=== PATIENT | male | born 1940 | race Caucasian/White ===

== ENCOUNTER 2025-04-02 05:30 | Observation (INO) | payer MEDICARE, OTHER ==
[2025-03-26 09:06] VITALS: BMI 26.6
[2025-03-26 09:52] LABS: #Basophils 0.04 10x3/uL (0.0-0.2); #Eosinophils 0.19 10x3/uL (0.0-0.7); #Monocytes 0.93 10x3/uL (0.11-0.59); #Neutrophils 3.78 10x3/uL (1.40-6.50); %Basophils 0.6 % (0.0-1.0); %Eosinophils 2.7 % (0.0-10.0); %Lymphocytes 29.4 % (21.0-51.0); %Monocytes 13.1 % (0.0-10.0); %Neutrophils 53.2 % (42.0-75.0); Hematocrit 41.1 % (42.0-52.0); Hemoglobin 13.6 g/dL (14.0-18.0); Mean Corpuscular Hemoglobin 30.4 pg (27.0-31.0); Mean Corpuscular Volume 91.7 fL (78.0-98.0); Platelet Count 291 10x3/uL (130-400); Red Blood Cell (RBC) Count 4.48 mill/uL (4.70-6.10); White Blood Cell (WBC) Count 7.10 10x3/uL (4.8-10.8)
[2025-03-26 10:06] LABS: INR-International Normal Ratio 1.1; Prothrombin Time 14.3 sec (12.0-14.7)
[2025-03-26 10:16] LABS: ALT (SGPT) 9 U/L (Less than 45); AST (SGOT) 21 U/L (11-34); Albumin 3.8 g/dL (3.1-4.5); Alkaline Phosphatase 64 U/L (40-110); Anion Gap 13 mmol/L (10-20); BUN (Urea Nitrogen) 31 mg/dL (8.4-25.7); Bilirubin, Total 1.0 mg/dL (0.3-1.2); Calc. Creatinine Clearance 0 mL/min (70-130); Calcium 9.5 mg/dL (7.8-10.44); Carbon Dioxide 25 mmol/L (23-31); Chloride 107 mmol/L (98-107); Globulin 4.1 g/dL (2.4-3.5); Glucose 91 mg/dL (83-110); Potassium 3.8 mmol/L (3.5-5.1); Sodium 141 mmol/L (136-145)
[2025-04-02] MEDS ORDERED: Acetaminophen 500 MG TAB ONE (06:00)
[2025-04-02] MEDS ORDERED: Tranexamic Acid 1,000 MG/10 ML VIAL ONE (06:00)
[2025-04-02] MEDS ORDERED: Gabapentin 300 MG CAP ONE (06:00)
[2025-04-02] MEDS ORDERED: Vancomycin 1 GM/200 ML (FROZEN) BAG ONE (06:01)
[2025-04-02] MEDS ORDERED: CEFAZOLIN 2 GM VIAL ONE ×2 (06:01→15:32)
[2025-04-02] MEDS ORDERED: Lidocaine 1% (PF) 30 ML VIAL ONE (06:45)
[2025-04-02] MEDS ORDERED: Ropivacaine 0.5% HCl/PF (150 MG/30 ML VIAL) ONE (06:45)
[2025-04-02] MEDS ORDERED: Bupivacaine 0.25% HCL 30 ML VIAL ONE (06:53)
[2025-04-02] MEDS ORDERED: PROPOFOL 20 ML ONE (07:24)
[2025-04-02] MEDS ORDERED: Lidocaine 1% PF 5 ML VIAL ONE (07:24)
[2025-04-02] MEDS ORDERED: Ondansetron PF 4 MG/2 ML Vial ONE (07:24)
[2025-04-02] MEDS ORDERED: oxyCODONE 5 MG TAB PO PRN ×2 (07:50)
[2025-04-02] MEDS ORDERED: Ropivacaine 0.2% 550 ML 550 ML NERVE BLCK SCH (08:00)
[2025-04-02] MEDS ORDERED: Ondansetron PF 4 MG/2 ML Vial IVP PRN ×2 (08:00→10:23)
[2025-04-02] MEDS ORDERED: diphenhydrAMINE 25 MG CAP PO PRN (10:23)
[2025-04-02] MEDS ORDERED: fentaNYL PF 100 MCG/2 ML SYRINGE ONE (10:39)
[2025-04-02] MEDS ORDERED: Ketorolac Tromethamine 30 MG (1 mL) VIAL ONE (11:38)
[2025-04-02] MEDS ORDERED: Acetaminophen 325 MG TAB ONE (11:38)
[2025-04-02] MEDS: Ketorolac Tromethamine 30 MG (1 mL) VIAL IVP SCH (11:42)
[2025-04-02] MEDS: Acetaminophen 325 MG TAB PO SCH (11:43)
[2025-04-03 05:35] LABS: Hematocrit 36.6 % (42.0-52.0); Hemoglobin 11.7 g/dL (14.0-18.0); Mean Corpuscular Hemoglobin 29.6 pg (27.0-31.0); Mean Corpuscular Volume 92.7 fL (78.0-98.0); Platelet Count 220 10x3/uL (130-400); Red Blood Cell (RBC) Count 3.95 mill/uL (4.70-6.10); White Blood Cell (WBC) Count 12.09 10x3/uL (4.8-10.8)
[2025-04-03 06:04] LABS: Anion Gap 12 mmol/L (10-20); BUN (Urea Nitrogen) 21 mg/dL (8.4-25.7); Calc. Creatinine Clearance 64 mL/min (70-130); Calcium 8.8 mg/dL (7.8-10.44); Carbon Dioxide 26 mmol/L (23-31); Chloride 105 mmol/L (98-107); Glucose 104 mg/dL (83-110); Potassium 3.9 mmol/L (3.5-5.1); Sodium 139 mmol/L (136-145)
[2025-04-03] MEDS: Senokot S 8.6-50 MG TAB PO SCH (08:50)
[2025-04-03] MEDS: Multivitamin W/ Minerals 1 TAB PO SCH (08:50)
[2025-04-03] MEDS: Ferrous Gluconate 324 MG TAB PO SCH (08:50)
[2025-04-03 12:28] VITALS: BP 161/77; TEMP 97.8
== END 2025-04-03 13:20 ==
LOC: SDC 05:30 → SURG A 10:23 → INTOOBSV 10:23
PROVIDERS: ADMIT Student in an Organized Health Care Education/Training Program; ATTEND Student in an Organized Health Care Education/Training Program
PROC: 0SRC0JZ Replacement of Right Knee Joint with Synthetic Substitute, Open Approach (ICD-10-PCS; principal; 2025-04-02)
DX: M17.11 Unilateral primary osteoarthritis, right knee (principal); I10 Essential (primary) hypertension; Z90.49 Acquired absence of other specified parts of digestive tract
CPT/HCPCS: 0055T; 27447; 64448; 36415; 80048; 80053; 85025; 85027; 85610; 86850; 86900; 86901; 87081; A4306; A6258; C1713; C1776; C1889; J0169; J0665; J1100; J1885; J2003; J2250; J2405; J2704; J2795; J3010; J3373